=== PATIENT | male | born 1945 | race Hispanic/Latino ===

== ENCOUNTER 2016-04-29 15:06 | Emergency (ER) | payer MEDICARE, MEDICAID ==
[2016-04-29] MEDS ORDERED: Sodium Chloride 0.9% 1,000 ML ONE ×2 (15:57→17:28)
[2016-04-29] MEDS ORDERED: Acetaminophen 500 MG TAB ONE (15:59)
[2016-04-29 16:12] LABS: Bilirubin Negative (Negative); Blood, Urine Moderate (Negative); Glucose, Urine (Dipstick) 500 mg/dL (Negative); Ketone, Urine 80 mg/dL (Negative); Nitrite Negative (Negative); Protein, Urine (Dipstick) 100 mg/dL (Neg-Trace)
[2016-04-29 16:17] LABS: RBC/HPF 0-3 HPF (0-3); WBC/HPF 0-3 HPF (0-3)
--- NOTE | 2016-04-29 16:26 | RAD ---
FRONTAL VIEW CHEST 04/29/16 INDICATION: Fall, hyperglycemia. FINDINGS: The cardiac silhouette is attenuated by portable technique. There is mild vascular prominence. Patch y left basilar opacity present. There is no significant effusion or discrete pneumothorax. Osseous degenerative change present. There are leads overlying the chest limiting detail. IMPRESSION: Prominent cardiac silhouette and pulmonary vasculature. Correlate for fluid status. There is mild left basilar patchy opacification which may relate to edema, volume loss or developing pneumonia. Followup imaging may be obtained with dedicated two view chest as clinically necessary. POS: [facility]
[2016-04-29 16:32] LABS: Band 6 % (5-11); Hematocrit 34.7 % (42.0-52.0); Mean Platelet Volume 9.9 fL (7.4-10.4); Metamyelocyte 1 % (0-0); Neutrophil 81 % (42-75); Red Blood Cell (RBC) Count 3.62 mill/uL (4.70-6.10); White Blood Cell (WBC) Count 9.9 thou/uL (4.8-10.8)
[2016-04-29 16:34] LABS: Lactic Acid - Sepsis 5.2 mmol/L (0.5-2.2)
[2016-04-29 16:37] LABS: ALT (SGPT) 21 U/L (0-55); AST (SGOT) 19 U/L (5-34); Alkaline Phosphatase 70 U/L (40-150); Anion Gap 21 mmol/L (10-20); BUN (Urea Nitrogen) 19 mg/dL (8.4-25.7); Bilirubin, Total 0.8 mg/dL (0.2-1.2); Calc. Creatinine Clearance 0 mL/min (70-130); Calcium 8.3 mg/dL (7.8-10.44); Carbon Dioxide 14 mmol/L (23-31); Chloride 102 mmol/L (98-107); Estimated GFR-MDRD 52; Globulin 3.2 g/dL (2.4-3.5); PTT 29.9 SEC (22.9-36.1); Protein, Total 6.9 g/dL (5.8-8.1); Troponin I 0.031 ng/mL (< 0.028)
--- NOTE | 2016-04-29 16:43 | CT ---
CT HEAD NONCONTRAST: History: Fall with hyperglycemia. FINDINGS: There is no evidence of intracranial hemorrhage, mass effect or midline shift. Physiologic basal ga nglia calcification at the left globus pallidus is present. There is mucosal thickening of the para nasal sinuses. Decreased pneumatization of the right mastoid air cells and mild left mastoid fluid present. IMPRESSION: No acute intracranial hemorrhage or mass effect. POS: [facility]
[2016-04-29] MEDS ORDERED: Oseltamivir 75 MG CAP ONE (16:56)
[2016-04-29] MEDS ORDERED: Sodium Chloride 0.9% 100 ML ONE (18:12)
[2016-04-29 19:02] LABS: Anion Gap 15 mmol/L (10-20); BUN (Urea Nitrogen) 16 mg/dL (8.4-25.7); Calc. Creatinine Clearance 0 mL/min (70-130); Calcium 7.2 mg/dL (7.8-10.44); Carbon Dioxide 15 mmol/L (23-31); Chloride 106 mmol/L (98-107); Estimated GFR-MDRD 71
[2016-04-29] MEDS ORDERED: Potassium Chloride 20 MEQ TAB ONE (19:18)
[2016-04-29 21:19] LABS: Anion Gap 14 mmol/L (10-20); BUN (Urea Nitrogen) 15 mg/dL (8.4-25.7); Calc. Creatinine Clearance 0 mL/min (70-130); Calcium 7.6 mg/dL (7.8-10.44); Carbon Dioxide 19 mmol/L (23-31); Chloride 107 mmol/L (98-107); Estimated GFR-MDRD 69
[2016-04-29 21:24] LABS: Troponin I 0.125 ng/mL (< 0.028)
--- NOTE | 2016-04-29 23:49 | CT ---
EXAM: ABDOMEN CT WITHOUT CONTRAST PELVIC CT WITHOUT CONTRAST 04/29/16 HISTORY: Seizure, dizziness, bowel incontinence. COMPARISON: None. TECHNIQUE: Abdomen and pelvic CT are performed without IV or oral contrast. Coronal reformatted images are subm itted for interpretation. FINDINGS: ABDOMEN CT: Dependent atelectatic changes and scarring in the lung bases. Heart is enlarged. No significant pericardial fluid. The visualized aorta has a normal caliber. Athe rosclerosis is noted. Symmetric attenuation of the psoas muscles. Limited evaluation of the abdomen due to motion degradation. No mesenteric mass, lymphadenopathy or free air. Small amount of fluid in both pericolic gutters. Limited evaluation of the alimentary john l due to motion and lack of oral contrast. Multiple borderline small bowel loops are noted in the le ft hemiabdomen. Significance is uncertain. Ileocecal junction is normal. Normal caliber appendix. Sc attered fecal material in a nondistended, nondilated colon. Suboptimal evaluation of the colonic muc frank. Gallbladder is unremarkable. Bilaterally, no hydronephrosis, nephrolithiasis. No fat stranding. Bilateral ureters have a normal c aliber. No hydroureter, periureteral fat stranding, or ureterolithiasis. Limited evaluation of the solid organs. Grossly, the liver, spleen, pancreas and adrenal glands are unremarkable. PELVIC CT: Castaneda catheter decompresses the urinary bladder. No pelvic mass, lymphadenopathy, free air or free f luid. No osteoblastic or osteolytic lesions. IMPRESSION: 1. Nonspecific borderline left hemiabdominal small bowel loops, incompletely evaluated. Ileus o r early/partial obstructive process cannot be completely excluded. Better interrogation with followu p CT utilizing oral and IV contrast is recommended. 2. Normal caliber appendix. 3. Results of the study discussed with Kelsey, 04/29/16 at 11:39 p.m. Code CR POS: [facility]
[2016-04-30 05:33] LABS: Anion Gap 14 mmol/L (10-20); BUN (Urea Nitrogen) 12 mg/dL (8.4-25.7); Calc. Creatinine Clearance 0 mL/min (70-130); Calcium 7.5 mg/dL (7.8-10.44); Carbon Dioxide 17 mmol/L (23-31); Chloride 111 mmol/L (98-107); Estimated GFR-MDRD 78
[2016-04-30 05:36] LABS: Troponin I 0.145 ng/mL (< 0.028)
[2016-04-30] MEDS ORDERED: Oseltamivir 75 MG CAP ONE (07:03)
[2016-04-30] MEDS ORDERED: NS 0.9% w/ 20 MEQ KCL 1,000 ML ONE (08:09)
== END 2016-04-30 08:45 | disposition short-term general hospital (02) ==
LOC: NAV ERS 15:06
DX: A41.9 Sepsis, unspecified organism (principal); E10.10 Type 1 diabetes mellitus with ketoacidosis without coma; J11.1 Influenza due to unidentified influenza virus with other respiratory manifestations; J18.9 Pneumonia, unspecified organism; E78.5 Hyperlipidemia, unspecified; E78.00 Pure hypercholesterolemia, unspecified
CPT/HCPCS: 36415; 36416; 51702; 70450; 71010; 74176; 80048; 80053; 81003; 81015; 82553; 83605; 84484; 85025; 85610; 85730; 87040; 93005; 94760; 96361; 96365; 96366; 96367; J1956; J3370; J7050

== ENCOUNTER 2016-06-04 10:23 | Outpatient (CLI) | payer MEDICARE, MEDICAID ==
--- NOTE | 2016-06-05 07:25 | RAD ---
TWO VIEW CHEST INDICATIONS: Pneumonia. COMPARISON: 04/29/2016 FINDINGS: There is a patchy density of the left lower lung zone. There is mild interstitial prominence of the right perihilar region. The cardiac silhouette is mildly enlarged. There is also mild prominence of the central pulmonary vasculature. No significant effusion or discrete pneumothorax. IMPRESSION: Mild bibasilar patchy opacities may be on the basis of edema. There is enlargement of the cardiac s ilhouette. POS: [facility]
== END 2016-06-04 10:24 | disposition home or self-care (01) ==
LOC: NAV RAD 10:23
PROVIDERS: ATTEND Internal Medicine
DX: J18.9 Pneumonia, unspecified organism (principal)
CPT/HCPCS: 71020

== ENCOUNTER 2016-07-11 08:25 | Outpatient (CLI) | payer MEDICARE, MEDICAID ==
--- NOTE | 2016-07-11 13:56 | CT ---
CT OF THE HEAD WITH AND WITHOUT CONTRAST: Date: 07/11/16 COMPARISON: None. HISTORY: Abnormal neurological examination. TECHNIQUE: Serial axial CT imaging at 5 mm intervals from vertex through skull base with and without contrast. FINDINGS: The imaged paranasal sinuses/mastoid air cells demonstrate opacification of the right mastoid air ce lls. There is no displaced calvarial fracture. There is no intracranial hemorrhage, midline shift, m ass effect, or ventricular enlargement. Periventricular hypodensity suggests small vessel disease. Postcontrast imaging is provided. Postcontrast study was not tailored to evaluate the arterial struc tures. No enhancing lesions are noted within the brain parenchyma. IMPRESSION: 1. No intracranial hemorrhage or midline shift. 2. No enhancing lesions noted within the brain parenchyma. 3. Opacified mastoid air cells on the right. POS: [facility]
== END 2016-07-11 08:26 | disposition home or self-care (01) ==
LOC: NAV CT 08:25
PROVIDERS: ATTEND Internal Medicine
DX: R29.818 Other symptoms and signs involving the nervous system (principal)
CPT/HCPCS: 36415; 70470; 82565

== ENCOUNTER 2016-10-13 10:40 | Outpatient (CLI) | payer MEDICARE, MEDICAID ==
[2016-10-13 17:35] LABS: Creatinine, Urine 85.41 mg/dL (63-166); Microalbumin Urine 6.6 mg/dL (0.5-50.0); Microalbumin/Creat Ratio 77.3 mg/g (Less than 30)
== END 2016-10-13 10:41 | disposition home or self-care (01) ==
LOC: NAVSJIPCSP 10:40 → NAV LAB 10:41
PROVIDERS: ATTEND Internal Medicine
DX: E11.51 Type 2 diabetes mellitus with diabetic peripheral angiopathy without gangrene (principal)
CPT/HCPCS: 82043

== ENCOUNTER 2017-04-15 11:12 | Outpatient (CLI) | payer MEDICAID, MEDICARE ==
--- NOTE | 2017-04-15 12:43 | RAD ---
CHEST PA AND LATERAL: HISTORY: A 72-year-old male with a history of [id number] elevation, NSTEI, heart size, diabetes mellitus, and hypertension. COMPARISON: 06/04/16. FINDINGS: Heart size is within normal limits. There appear to be some stable minimal bilateral increased tita ngs. The posterior inferior chest is not completely included on the lateral radiograph. IMPRESSION: Overall stable-appearing mild chronic changes. No confluent pneumonia, overt edema, pleural effusion , or other active process. POS: [facility]
== END 2017-04-15 11:13 | disposition home or self-care (01) ==
LOC: NAV RAD 11:12
PROVIDERS: ATTEND Internal Medicine
DX: I25.9 Chronic ischemic heart disease, unspecified (principal); E11.51 Type 2 diabetes mellitus with diabetic peripheral angiopathy without gangrene; I10 Essential (primary) hypertension; I25.2 Old myocardial infarction
CPT/HCPCS: 71046

== ENCOUNTER 2018-11-20 20:52 | Emergency (ER) | payer MEDICARE, MEDICAID ==
[2018-11-20] MEDS ORDERED: Clindamycin 150 MG CAP ONE (21:34)
== END 2018-11-20 21:40 | disposition home or self-care (01) ==
LOC: NAV ERS 20:52
DX: E11.621 Type 2 diabetes mellitus with foot ulcer (principal); L97.529 Non-pressure chronic ulcer of other part of left foot with unspecified severity; L08.9 Local infection of the skin and subcutaneous tissue, unspecified; M19.90 Unspecified osteoarthritis, unspecified site; E11.9 Type 2 diabetes mellitus without complications; E78.00 Pure hypercholesterolemia, unspecified; I10 Essential (primary) hypertension; Z79.899 Other long term (current) drug therapy; Z79.82 Long term (current) use of aspirin; Z79.4 Long term (current) use of insulin
CPT/HCPCS: 99283

== ENCOUNTER 2019-10-23 20:57 | Emergency (ER) | payer MEDICARE ==
[2019-10-23] MEDS ORDERED: Dextrose 50% Abboject 50 ML SYRINGE ONE (21:15)
[2019-10-23] MEDS ORDERED: Dextrose 5 %-0.45 % NaCl 1,000 ML ONE (21:21)
[2019-10-23 21:47] LABS: #Basophils 0.1 thou/uL (0.0-0.2); #Eosinphils 0.8 thou/uL (0.0-0.7); #Lymphocytes 2.8 thou/uL (1.20-3.40); #Monocytes 0.8 thou/uL (0.11-0.59); #Neutrophils 11.7 thou/uL (1.40-6.50); %Basophils 0.7 % (0.0-1.0); %Eosinophils 4.7 % (0.0-10.0); %Lymphocytes 17.2 % (21.0-51.0); %Monocytes 4.8 % (0.0-10.0); %Neutrophils 72.5 % (42.0-75.0); Hemoglobin 12.8 g/dL (14.0-18.0); Mean Corpuscular HGB CONC 32.1 g/dL (32.0-36.0); Mean Corpuscular Hemoglobin 30.6 pg (27.0-31.0); Mean Corpuscular Volume 95.3 fL (78.0-98.0); Mean Platelet Volume 9.5 fL (7.4-10.4); Platelet Count 265 thou/uL (130-400); RBC Distribution Width 12.7 % (11.5-14.5); Red Blood Cell (RBC) Count 4.17 mill/uL (4.70-6.10); White Blood Cell (WBC) Count 16.2 thou/uL (4.8-10.8)
[2019-10-23 22:22] LABS: ALT (SGPT) 18 U/L (8-55); AST (SGOT) 23 U/L (5-34); Alkaline Phosphatase 117 U/L (40-110); Anion Gap 20 mmol/L (10-20); BUN (Urea Nitrogen) 23 mg/dL (8.4-25.7); Bilirubin, Total 0.5 mg/dL (0.2-1.2); Calc. Creatinine Clearance 0 mL/min (70-130); Calcium 9.5 mg/dL (7.8-10.44); Carbon Dioxide 20 mmol/L (23-31); Chloride 101 mmol/L (98-107); Estimated GFR-MDRD 73; Globulin 3.9 g/dL (2.4-3.5); Lipase 12 U/L (8-78); Potassium 4.2 mmol/L (3.5-5.1); Protein, Total 7.9 g/dL (5.8-8.1); Sodium 137 mmol/L (136-145)
[2019-10-23 22:23] LABS: Glucose 34 mg/dL (83-110)
[2019-10-23] MEDS ORDERED: Meropenem 500 MG VIAL ONE (22:40)
[2019-10-23] MEDS ORDERED: Sodium Chloride 0.9% 500 ML ONE (22:41)
[2019-10-23] MEDS ORDERED: Sodium Chloride 0.9% 250 ML 250 ML ONE (22:41)
--- NOTE | 2019-10-24 07:27 | RAD ---
ACUTE ABDOMINAL SERIES: Date: 10/23/2019 PROVIDED CLINICAL HISTORY: Constipation. FINDINGS: Comparison made with the study dated 04/15/2017. Cardiac silhouette appears enlarged. Lungs appear hypoinflated. There is questioned left perihilar op acity air space disease. Bibasilar subsegmental atelectatic change. No evidence for pleural fluid or pneumothorax. There is conspicuous gaseous distention of transverse colon with several air fluid levels seen on the upright view. There is conspicuous fecal retention involving the expected distribution of the descen ding sigmoid and rectum. There is no evidence for pneumoperitoneum. No radiographically apparent urin paras tract calculi. IMPRESSION: 1. Cardiomegaly. 2. Questioned patchy left perihilar air space disease. Correlate with concerns for pneumonia. 3. Dilated colon with air fluid level suggesting obstructive change related to the fecal load or oth er distal colonic process. POS: [facility]
== END 2019-10-23 22:57 | disposition short-term general hospital (02) ==
LOC: NAV ERS 20:57
DX: K56.609 Unspecified intestinal obstruction, unspecified as to partial versus complete obstruction (principal); E11.649 Type 2 diabetes mellitus with hypoglycemia without coma; E78.5 Hyperlipidemia, unspecified; D72.829 Elevated white blood cell count, unspecified; E78.00 Pure hypercholesterolemia, unspecified; M19.90 Unspecified osteoarthritis, unspecified site; N40.0 Benign prostatic hyperplasia without lower urinary tract symptoms; I10 Essential (primary) hypertension; Z79.899 Other long term (current) drug therapy; Z79.82 Long term (current) use of aspirin; Z79.4 Long term (current) use of insulin
CPT/HCPCS: 36416; 74022; 80053; 83605; 83690; 85025; 87040; 96361; 96374; 96375; J2185; J7030; J7042; J7050